=== PATIENT | male | born 1965 | race Caucasian/White ===

== ENCOUNTER 2022-12-11 05:34 | Day surgery (SDC) | payer BC ==
[2022-12-07 14:48] LABS: BASOPHILS % (AUTO) 0.7 % (0-1); EOSINOPHILS # (AUTO) 0.2 X10'3 (0-0.9); EOSINOPHILS % (AUTO) 3.6 % (0-6); LYMPHOCYTES % (AUTO) 19.1 % (21-51); MEAN CORPUSCULAR HEMOGLOBIN 30.2 PG (27.0-31.0); MEAN CORPUSCULAR HGB CONC 32.9 g/dL (33.0-36.5); MEAN CORPUSCULAR VOLUME 91.8 FL (78-98); MEAN PLATELET VOLUME 7.9 FL (7.4-10.4); MONOCYTES # (AUTO) 0.5 X10'3 (0-0.9); MONOCYTES % (AUTO) 9.3 % (2-12); NEUTROPHILS # (AUTO) 3.6 X10'3 (1.8-7.7); NEUTROPHILS % (AUTO) 67.3 % (42-75); PRE OP HEMATOCRIT 47.7 % (42.0-52.0); PRE OP HEMOGLOBIN 15.7 g/dL (14.0-17.9); PRE OP PLATELET COUNT 241 X10'3 (140-440); RED CELL DISTRIBUTION WIDTH 14.8 % (11.5-14.5)
[2022-12-07 15:20] LABS: ALBUMIN 3.8 G/DL (3.4-5.0); ALBUMIN/GLOBULIN RATIO 1.3 (1.1-1.5); ALKALINE PHOSPHATASE 49 IU/L (46-116); BLOOD UREA NITROGEN 19 MG/DL (7-18); CALCIUM 8.5 MG/DL (8.5-10.1); CHLORIDE 103 MMOL/L (99-107); CREATININE 1.27 MG/DL (0.60-1.10); PRE OP ALT 45 U/L (30-65); PRE OP ANION GAP 7 (8-16); PRE OP AST 30 U/L (10-37); PRE OP BILIRUB, TOTAL 0.5 MG/DL (0.0-1.0); PRE OP GLUCOSE 110 MG/DL (70-104); PRE OP SODIUM 139 MMOL/L (135-145); TOTAL CARBON DIOXIDE 28.6 MMOL/L (24-32); TOTAL PROTEIN 6.7 G/DL (6.4-8.2); eGFR 58 ML/MIN
[~2022-12-11] VITALS: Ht 185.4 cm; Wt 95.6 kg
[~2022-12-11 05:34] MED LIST: MULT-1085 PO; VIT B; VIT D; cefazolin 2gm/D5W 100mL 100 ML IV ONE; famotidine 20mg tablet PO ONE; ringers solution, lacted 1,000 ML IV SCH
[2022-12-11] MEDS ORDERED: TETRACAINE 0.5% 4 ML OPHTHALMIC DROPS ONE (06:43)
[2022-12-11] MEDS ORDERED: LIDOcaine 1% W/epiNEPHrine 1:100,000 20ml vial ONE (06:43)
[2022-12-11 07:17] VITALS: BP 127/86
[2022-12-11] MEDS ORDERED: ondansetron/PF 4mg/2ml inj IV PRN (07:20)
[2022-12-11] MEDS ORDERED: ringers solution, lacted 1,000 ML IV SCH (07:20)
[2022-12-11] MEDS ORDERED: morphine 2 MG/ML inj. syringe IV PRN (07:20)
[2022-12-11] MEDS ORDERED: labetalol 20mg/4ml (5mg/ml) syringe IV PRN (07:20)
[2022-12-11] MEDS ORDERED: morphine 4 MG/ML inj SYRINge IV PRN (07:20)
[2022-12-11] MEDS ORDERED: propofol inj 20 ML IV ONE (07:24)
[2022-12-11] MEDS ORDERED: fentaNYL/PF 50MCG/1 ML 2ML syringe ONE ×2 (07:24→08:50)
[2022-12-11] MEDS ORDERED: LIDOcaine 2% (20mg/ml) 5ml vial ONE (07:24)
[2022-12-11] MEDS ORDERED: midazolam 1 mg/ML 2ml injection ONE (07:24)
[2022-12-11] MEDS ORDERED: ondansetron/PF 4mg/2ml inj ONE (07:27)
[2022-12-11] MEDS ORDERED: dexamethasone sod phosphate 10mg/ml inj ONE (07:27)
[2022-12-11] MEDS ORDERED: sevoflurane 250ml liquid IH ONE (07:27)
[2022-12-11] MEDS ORDERED: LIDOcaine 1% W/epiNEPHrine 1:100,000 20ml vial IJ ONE (07:30)
[2022-12-11 09:10] VITALS: BP 132/75
--- NOTE | 2022-12-11 09:10 | NUR ---
Received from OR via [facility], accompanied by DR. SERRANO - anesthesia report given. PATIENT WAKING UP, NO S/S OF PAIN, V/S WNL, 20G TO LUE, .BILATERAL EYE PATCH DRESSING WITH OINTMENT TO EYELIDS CLEAN NO S/S OF COMPLICATIONS. ICE PACK OVER EYELIDS PLACED PER DR COLE.
--- NOTE | 2022-12-11 09:12 | NUR ---
Received from OR via [facility], accompanied by DR. SERRANO - anesthesia report given. PATIENT WAKING UP, NO S/S OF PAIN, V/S WNL, 20G TO LUE, .BILATERAL EYE PATCH DRESSING WITH OINTMENT TO EYELIDS CLEAN NO S/S OF COMPLICATIONS. ICE PACK OVER EYELIDS PLACED PER DR COLE. Addendum: 12/11/22 at 0917 by Chester Rodrigues RN WRONG TIME
[2022-12-11 09:20] VITALS: BP 130/94
[2022-12-11 09:30] VITALS: BP 128/93
[2022-12-11 09:40] VITALS: BP 131/89
[2022-12-11 09:50] VITALS: BP 133/85
--- NOTE | 2022-12-11 09:50 | NUR ---
PATIENT A&OX4, DENIES PAIN, V/S WNL, 20G TO MICKEY D/C, .BILATERAL EYE PATCH DRESSING WITH OINTMENT TO EYELIDS CLEAN NO S/S OF COMPLICATIONS. ICE PACK OVER EYELIDS ON. PATIENT STATES HE WOULD LIKE TO GO HOME NOW. I HAVE REVIEWED DISCHARGE INSTRUCTIONS COVERED WITH PATIENT AND ALL QUESTIONS ANSWERED. PATIENT TAKEN OUT VIA WHEELCHAIR TO PERSONAL VEHICLE WHERE FAMILY DROVE PATIENT HOME.
== END 2022-12-11 09:50 | disposition home or self-care (01) ==
LOC: PAS 05:34
PROVIDERS: ATTEND Specialist
DX: H02.831 Dermatochalasis of right upper eyelid (principal); H02.834 Dermatochalasis of left upper eyelid; Z41.1 Encounter for cosmetic surgery; G89.29 Other chronic pain; Z98.890 Other specified postprocedural states; Z72.89 Other problems related to lifestyle; Z79.899 Other long term (current) drug therapy
CPT/HCPCS: 15821; 15823; 36415; 80053; 82948; 85025; 93005; A6402; J0690; J1100; J2250; J2405; J2704; J3010; J3490; J7030; J7120; Z7506; Z7508; Z7512; A4215; A4618; A6410; A6449; A7000